=== PATIENT | male | born 1985 | race Caucasian/White ===

== ENCOUNTER 2019-01-29 11:51 | Emergency (ER) | payer MEDICAID ==
[~2019-01-29] VITALS: Ht 182.9 cm; Wt 74.8 kg
[2019-01-29 12:01] VITALS: BP 144/88
[2019-01-29] MEDS ORDERED: LIDOCAINE 0.5% HCL 50 ML VIAL ONE (12:15)
[2019-01-29] MEDS ORDERED: IBUPROFEN 600 MG TABLET PO ONE ×2 (12:30→12:31)
== END 2019-01-29 13:33 | disposition home or self-care (01) ==
LOC: ER 11:59
DX: S61.211A Laceration without foreign body of left index finger without damage to nail, initial encounter (principal); W22.8XXA Striking against or struck by other objects, initial encounter; Y93.89 Activity, other specified; Y92.89 Other specified places as the place of occurrence of the external cause; Y99.8 Other external cause status
CPT/HCPCS: 12001; 73140; 99283; J3490